=== PATIENT | female | born 1990 | race Caucasian/White ===

== ENCOUNTER 2024-01-20 09:38 | Inpatient (IN) | payer MEDICAID ==
[2024-01-20] MEDS ORDERED: Lidocaine 1% 50 ML MDV INJECT PRN (10:48)
[2024-01-20] MEDS ORDERED: Sodium Chloride 0.9% 10 ML Syringe FLUSH PRN ×3 (10:48→22:58)
[2024-01-20] MEDS ORDERED: Nalbuphine 10 MG/ML Syringe IVPUSH PRN (10:48)
[2024-01-20] MEDS ORDERED: Ondansetron 4 MG/2 ML SDV IVPUSH PRN ×2 (10:48→22:06)
[2024-01-20] MEDS: Lactated Ringers 1,000 ML IV SCH (11:00)
[2024-01-20 11:13] LABS: BASOPHILS PERCENT AUTO 0.3 % (0.0-1.0); EOSINOPHILS ABSOLUTE AUTO 0.1 K/mm3 (0.0-0.4); EOSINOPHILS PERCENT AUTO 0.5 % (0.0-6.0); HEMATOCRIT 34.6 % (37.0-47.0); HEMOGLOBIN 11.3 gm/dl (12.0-16.0); IMMATURE GRAN ABSOLUTE AUTO 0.08 K/mm3 (0.00-0.05); IMMATURE GRAN PERCENT AUTO 0.6 % (0.0-0.4); LYMPHOCYTES ABSOLUTE AUTO 1.5 K/mm3 (1.0-4.8); MEAN CORPUSCULAR HEMOGLOBIN 27.2 pg (28.0-32.0); MEAN CORPUSCULAR HGB CONC 32.7 g/dl (32.0-36.0); MEAN CORPUSCULAR VOLUME 83.2 fl (83.0-99.0); MEAN PLATELET VOLUME 10.3 fl (9.4-12.3); MONOCYTES ABSOLUTE AUTO 0.8 K/mm3 (0.0-0.8); MONOCYTES PERCENT AUTO 5.7 % (0.0-8.0); NEUTROPHILS ABSOLUTE AUTO 11.2 K/mm3 (1.8-7.7); NEUTROPHILS PERCENT AUTO 81.9 % (41.0-71.0); PLATELET COUNT,PLT 231 K/mm3 (150-400); RED BLOOD CELL COUNT 4.16 M/mm3 (4.10-5.30); WHITE BLOOD CELL COUNT,WBC 13.65 K/mm3 (3.9-11.3)
[2024-01-20] MEDS ORDERED: ePHEDrine 50 MG/ML SDV IVPUSH PRN ×2 (13:07→22:58)
[2024-01-20] MEDS ORDERED: diphenhydrAMINE 50 MG/ML SDV IVPUSH PRN ×3 (13:07→22:58)
[2024-01-20] MEDS: fentaNYL 100 MCG/2 ML SDV EPIDUR PRN (13:23)
[2024-01-20] MEDS: Bupivacaine/fentaNYL/NS 100 ML Bag EPIDUR PRN (13:25)
[2024-01-20] MEDS: Oxytocin/Lactated Ringers 30 UNIT/500 ML BAG IV SCH (18:28)
[2024-01-20] MEDS ORDERED: Gentamicin 360 MG in Sodium Chloride 0.9% 100 ML IV SCH (21:00)
[2024-01-20] MEDS: ceFAZolin 2 GM in Sodium Chloride 0.9% 50 ML IV SCH (21:05)
[2024-01-20] MEDS ORDERED: Lactated Ringers 1,000 ML IV SCH (21:15)
[2024-01-20 21:23] LABS: BASOPHILS PERCENT AUTO 0.1 % (0.0-1.0); EOSINOPHILS PERCENT AUTO 0.1 % (0.0-6.0); HEMATOCRIT 34.9 % (37.0-47.0); HEMOGLOBIN 11.3 gm/dl (12.0-16.0); IMMATURE GRAN ABSOLUTE AUTO 0.11 K/mm3 (0.00-0.05); IMMATURE GRAN PERCENT AUTO 0.6 % (0.0-0.4); LYMPHOCYTES ABSOLUTE AUTO 1.1 K/mm3 (1.0-4.8); LYMPHOCYTES PERCENT AUTO 5.9 % (24.0-44.0); MEAN CORPUSCULAR HEMOGLOBIN 27.3 pg (28.0-32.0); MEAN CORPUSCULAR HGB CONC 32.4 g/dl (32.0-36.0); MEAN CORPUSCULAR VOLUME 84.3 fl (83.0-99.0); MEAN PLATELET VOLUME 10.3 fl (9.4-12.3); MONOCYTES ABSOLUTE AUTO 1.3 K/mm3 (0.0-0.8); MONOCYTES PERCENT AUTO 6.9 % (0.0-8.0); NEUTROPHILS ABSOLUTE AUTO 16.1 K/mm3 (1.8-7.7); NEUTROPHILS PERCENT AUTO 86.4 % (41.0-71.0); PLATELET COUNT,PLT 199 K/mm3 (150-400); RED BLOOD CELL COUNT 4.14 M/mm3 (4.10-5.30); WHITE BLOOD CELL COUNT,WBC 18.62 K/mm3 (3.9-11.3)
[2024-01-20] MEDS ORDERED: Ketorolac 30 MG/ML SDV ONE (21:28)
[2024-01-20] MEDS ORDERED: Ondansetron 4 MG/2 ML SDV ONE (21:28)
[2024-01-20] MEDS ORDERED: Morphine PF 10 MG/10 ML SDV ONE (21:28)
[2024-01-20] MEDS ORDERED: Lactated Ringers 1,000 ML ONE ×2 (21:28→22:36)
[2024-01-20] MEDS ORDERED: fentaNYL 100 MCG/2 ML SDV ONE (21:29)
[2024-01-20] MEDS ORDERED: Lidocaine 2% with EPINEPHrine 1:200,000 20 ML SDV ONE (21:30)
[2024-01-20] MEDS ORDERED: Sodium Bicarbonate 8.4% 50 MEQ/50 ML SDV ONE (21:30)
[2024-01-20 21:31] LABS: ANION GAP 15.5 (5-15); BUN/CREATININE RATIO 8.8 (14-18); CALCIUM 8.7 mg/dL (8.5-10.1); CREATININE 0.8 mg/dL (0.55-1.02); EST CRCL DRUG DOSING (CG) 90.84 mL/min; POTASSIUM,K 3.5 mEq/L (3.5-5.1)
[2024-01-20] MEDS: Citric Acid/Sodium Citrate Solution 30 ML Cup PO ONE (21:33)
[2024-01-20] MEDS: Metoclopramide 10 MG/2 ML SDV IVPUSH ONE (21:36)
[2024-01-20] MEDS: Clindamycin Phosphate in D5W 900 MG in Premix Bag 1 BAG IV ONE (21:48)
[2024-01-20] MEDS ORDERED: Methylergonovine 0.2 MG/1 ML Amp IM PRN (21:56)
[2024-01-20] MEDS ORDERED: fentaNYL 100 MCG/2 ML SDV IVPUSH PRN (22:06)
[2024-01-20] MEDS ORDERED: Meperidine 50 MG/ML Vial IVPUSH PRN (22:06)
[2024-01-20] MEDS ORDERED: Naloxone 0.4 MG/ML SDV IVPUSH PRN (22:58)
[2024-01-20] MEDS ORDERED: ePHEDrine 50 MG/ML SDV ONE (23:00)
[2024-01-20] MEDS ORDERED: Bupivacaine 0.25% 10 ML SDV ONE (23:00)
[2024-01-20] MEDS ORDERED: hydrOXYzine HCl 25 MG Tab PO PRN (23:11)
[2024-01-21] MEDS: Dextrose 5%-Lactated Ringers 1,000 ML IV SCH (00:30)
[2024-01-21] MEDS: Acetaminophen 325 MG Tab PO SCH (00:30)
[2024-01-21] MEDS: Docusate Sodium 100 MG Cap PO SCH (00:31)
[2024-01-21] MEDS: Ibuprofen 800 MG Tab PO SCH (04:31)
[2024-01-21 05:57] LABS: BASOPHILS PERCENT AUTO 0.2 % (0.0-1.0); EOSINOPHILS PERCENT AUTO 0.1 % (0.0-6.0); HEMATOCRIT 27.3 % (37.0-47.0); IMMATURE GRAN ABSOLUTE AUTO 0.16 K/mm3 (0.00-0.05); IMMATURE GRAN PERCENT AUTO 0.8 % (0.0-0.4); LYMPHOCYTES ABSOLUTE AUTO 1.7 K/mm3 (1.0-4.8); LYMPHOCYTES PERCENT AUTO 9.2 % (24.0-44.0); MEAN CORPUSCULAR HEMOGLOBIN 27.3 pg (28.0-32.0); MEAN CORPUSCULAR HGB CONC 33.3 g/dl (32.0-36.0); MEAN PLATELET VOLUME 9.9 fl (9.4-12.3); MONOCYTES ABSOLUTE AUTO 1.4 K/mm3 (0.0-0.8); MONOCYTES PERCENT AUTO 7.6 % (0.0-8.0); NEUTROPHILS ABSOLUTE AUTO 15.5 K/mm3 (1.8-7.7); NEUTROPHILS PERCENT AUTO 82.1 % (41.0-71.0); PLATELET COUNT,PLT 214 K/mm3 (150-400); RED BLOOD CELL COUNT 3.33 M/mm3 (4.10-5.30); WHITE BLOOD CELL COUNT,WBC 18.92 K/mm3 (3.9-11.3)
[2024-01-21 06:01] LABS: HEMOGLOBIN 9.1 gm/dl (12.0-16.0)
[2024-01-21] MEDS: oxyCODONE 5 MG Tab PO PRN (09:09)
[2024-01-21] MEDS: Ferrous Sulfate 324 MG Tab.EC PO SCH (09:10)
[2024-01-21] MEDS: Tranexamic Acid 1,000 MG/10 ML Vial IV ONE (14:25)
[2024-01-21] MEDS: Sodium Chloride 0.9% 10 ML Syringe FLUSH SCH ×2 (14:25)
== END 2024-01-23 10:45 | disposition home or self-care (01) | DRG 786 ==
LOC: JD.OBCHECK 09:38 → JD.OB 09:44 → JD.OBCHECK 10:48 → OBSVTOIN 22:13 → JD.OB 22:14
PROVIDERS: ADMIT Obstetrics & Gynecology; ATTEND Obstetrics & Gynecology
PROC: 3E0R3BZ Introduction of Anesthetic Agent into Spinal Canal, Percutaneous Approach (ICD-10-PCS; 2024-01-20)
PROC: 00HU33Z Insertion of Infusion Device into Spinal Canal, Percutaneous Approach (ICD-10-PCS; 2024-01-20)
PROC: 10D00Z1 Extraction of Products of Conception, Low, Open Approach (ICD-10-PCS; principal; 2024-01-20 21:00)
DX: O48.0 Post-term pregnancy (principal); O41.1230 Chorioamnionitis, third trimester, not applicable or unspecified; D62 Acute posthemorrhagic anemia; O99.52 Diseases of the respiratory system complicating childbirth; J45.990 Exercise induced bronchospasm; O90.81 Anemia of the puerperium; O62.1 Secondary uterine inertia; Z88.0 Allergy status to penicillin; Z28.39 Other underimmunization status; Z37.0 Single live birth; Z3A.40 40 weeks gestation of pregnancy
CPT/HCPCS: 01967; 01968; 36415; 51702; 59025; 80048; 85025; 86592; 86850; 86900; 86901; 94762; A9270-GY; J0665; J0690; J0736; J1580; J1885; J2274; J2405; J2765; J3010; J3490; J7120; J7121; J7999